=== PATIENT | female | born 2000 ===

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

== ENCOUNTER 2018-07-11 16:23 | Emergency (ER) | payer MEDICAID ==
[2018-07-11 16:23] VITALS: BMI 31.2
[2018-07-11 16:31] VITALS: TEMP 98.4
--- NOTE | 2018-07-11 18:12 | ED PDOC ---
HPI: Chest Pain Time Seen by Provider: 07/11/18 17:31 Chief Complaint (Nursing): Chest Pain Chief Complaint (Provider): Chest Pain History Per: Patient History/Exam Limitations: no limitations Onset/Duration Of Symptoms: Days (x2) Current Symptoms Are (Timing): Still Present Additional Complaint(s): Patient is a 17 year old female with a possible medical history of high cholesterol but is unsure. She arrives to the emergency room complaining of having left arm pain that travels form her neck to down her arm for the past x2 days. Patient states she had a control implant planted in her left arm in October of 2017 and feels the pain is associated to that. She states she is also having constant chest pain and is also experiencing numbness, tingling and neck pain. Patient states she took Advil with no relief in symptoms. Her pain is worse with movement. PMD: Rylee Dave Past Medical History Reviewed: Historical Data, Nursing Documentation, Vital Signs Vital Signs: Last Vital Signs Temp 98.4 F 07/11/18 16:30 Pulse 68 07/11/18 16:30 Resp 16 07/11/18 16:30 BP 115/72 07/11/18 16:30 Pulse Ox 97 07/11/18 16:30 - Surgical History Surgical History: No Surg Hx - Family History Family History: States: Unknown Family Hx - Home Medications Home Medications: Ambulatory Orders Medication Instructions Recorded Metoclopramide [Reglan] 1 tab PO TID PRN #25 tab 01/07/17 Oseltamivir Phosphate [Tamiflu] 75 mg PO BID #10 capsule 03/20/17 Docusate Sodium [Colace] 100 mg PO BID #60 capsule 07/16/17 Ferrous Gluconate 324 mg PO TID #90 tablet 07/16/17 - Allergies Allergies/Adverse Reactions: Allergies Allergy/AdvReac Type Severity Reaction Status Date / Time No Known Allergies Allergy Verified 01/07/17 14:19 Review of Systems ROS Statement: Except As Marked, All Systems Reviewed And Found Negative Cardiovascular: Positive for: Chest Pain Musculoskeletal: Positive for: Neck Pain, Arm Pain Physical Exam - Reviewed Nursing Documentation Reviewed: Yes Vital Signs Reviewed: Yes - Physical Exam Appears: Positive for: Non-toxic, No Acute Distress Head Exam: Positive for: ATRAUMATIC, NORMOCEPHALIC Skin: Positive for: Normal Color, Warm, Dry Eye Exam: Positive for: Normal appearance, EOMI, PERRL ENT: Positive for: Normal ENT Inspection Neck: Positive for: Normal, Painless ROM, Supple Cardiovascular/Chest: Positive for: Regular Rate, Rhythm. Negative for: Murmur Respiratory: Positive for: Normal Breath Sounds. Negative for: Respiratory Distress Gastrointestinal/Abdominal: Positive for: Normal Exam, Soft. Negative for: Tenderness Back: Positive for: Normal Inspection. Negative for: L CVA Tenderness, R CVA Tenderness, Vertebral Tenderness Extremity: Positive for: Normal ROM. Negative for: Pedal Edema, Deformity Neurological/Psych: Positive for: Alert, Oriented - Laboratory Results Result Diagrams: 07/11/18 18:30 - ECG ECG Rhythm: Positive for: Normal QRS, Normal ST Segment, Sinus Rhythm Rate: 69 O2 Sat by Pulse Oximetry: 97 (RA) Pulse Ox Interpretation: Normal Medical Decision Making Medical Decision Making: Time: 175 Impression: Left arm pain and chest pain --Differential diagnosis includes but is not limited to: musculoskeletal pain, cervical irradulopathy. Rule out ACS and less like PE. Plan: --EKG --BMP --Troponin I --CBC with differential --D dimer --Chest xray 2 views --Toradol 15 mg IVP --monitor and storage bin tender Time: 1900 --Patient care endorsed to Dr. Gonzalez pending labs, reassessment and final disposition. ------- Scribe Attestation: Documented by Edd Maynard, acting as a scribe for Reginald Diana MD. Provider Scribe Attestation: All medical record entries made by the Scribe were at my direction and personally dictated by me. I have reviewed the chart and agree that the record accurately reflects my personal performance of the history, physical exam, medical decision making, and the department course for this patient. I have also personally directed, reviewed, and agree with the discharge instructions and disposition. Disposition - Disposition Forms: [employer] (Telugu)
--- NOTE | 2018-07-11 18:24 | RAD ---
Date of service: 07/11/2018 HISTORY: chest pain COMPARISON: No prior. TECHNIQUE: Chest PA and lateral views FINDINGS: LUNGS: No active pulmonary disease. PLEURA: No significant pleural effusion identified. No pneumothorax apparent. CARDIOVASCULAR: No aortic atherosclerotic calcification present. Normal cardiac size. No pulmonary vascular congestion. OSSEOUS STRUCTURES: No significant abnormalities. VISUALIZED UPPER ABDOMEN: Normal. OTHER FINDINGS: None. IMPRESSION: No active disease.
[2018-07-11 18:35] LABS: BASO # 0.1 K/uL (0.0-0.2); EOS # 0.2 K/uL (0.0-0.7); EOS % 1.7 % (0.0-4.0); HEMOGLOBIN 13.2 g/dL (12.0-16.0); LYMPH % 30.4 % (20.0-40.0); MEAN CELL VOLUME 85.7 fl (81.0-99.0); MEAN CORPUSCULAR HEMOGLOBIN 28.8 pg (27.0-31.0); MEAN CORPUSCULAR HGB CONC 33.6 g/dL (33.0-37.0); MEAN PLATELET VOLUME 9.7 fl (7.2-11.7); MONO # 0.6 K/uL (0.0-0.8); MONO % 6.2 % (0.0-10.0); NEUT % 60.7 % (50.0-75.0); NRBC % 0.1 % (0.0-0.0); RBC 4.6 Mil/uL (3.80-5.20); RED CELL DISTRIBUTION WIDTH 14.6 % (11.5-14.5); WHITE BLOOD COUNT 9.8 K/uL (4.8-10.8)
--- NOTE | 2018-07-11 19:24 | ED PDOC ---
- Laboratory Results Result Diagrams: 07/11/18 18:30 07/11/18 19:59 - ECG O2 Sat by Pulse Oximetry: 97 (RA) Pulse Ox Interpretation: Normal Medical Decision Making Medical Decision Making: Time: 1899 --Patient care endorsed to this provider by Dr. Gonzalez pending ER work up, reassessment and final disposition. Chest xray findings: Accession No. : [id number] Patient Name / ID : ZACH LEAVITT / [id number] Exam Date : 07/11/2018 17:49:39 ( Approved ) Study Comment : Sex / Age : F / 17Y Creator : jose frederick Dictator : Tim Michael MD Cattle Inspector : Station Worker : Tim Michael MD Approver2 : Report Date : 07/11/2018 18:05:47 My Comment : Date of service: 07/11/2018 HISTORY: chest pain COMPARISON: No prior. TECHNIQUE: Chest PA and lateral views FINDINGS: LUNGS: No active pulmonary disease. PLEURA: No significant pleural effusion identified. No pneumothorax apparent. CARDIOVASCULAR: No aortic atherosclerotic calcification present. Normal cardiac size. No pulmonary vascular congestion. OSSEOUS STRUCTURES: No significant abnormalities. VISUALIZED UPPER ABDOMEN: Normal. OTHER FINDINGS: None. IMPRESSION: No active disease. Name: ZAK SERRANO Exam Date: Jul 11, 2018 10:34:54 PM EDT Modality Type: CT Description: CTA CHEST FOR PE Gender: F Laterality: Not applicable : 98 Referring Physician: Lilian Gonzalez EXAM: CTA Chest with Intravenous Contrast for Pulmonary Embolism CLINICAL HISTORY: Chest pain elevated d-dimer TECHNIQUE: Axial CTA images of the chest with intravenous contrast using a pulmonary embolism protocol. Reconstructed images were created and reviewed. 308.63 mGy-cm CONTRAST: With; [id number] 80ml was administered without incident. COMPARISON: None provided. FINDINGS: PULMONARY ARTERIES No evidence of central or segmental pulmonary embolism is seen. AORTA There is no evidence for aneurysm or dissection of the thoracic aorta. LUNGS The lungs appear clear. PLEURAL SPACES No pleural effusion seen. No pneumothorax evident. HEART Heart size is within normal limits. No significant pericardial effusion. LYMPH NODES No lymphadenopathy is evident. BONES No focal osseous abnormality or acute fracture. UPPER ABDOMEN Images of the upper abdomen are unremarkable. IMPRESSION: Unremarkable pulmonary embolism protocol CTA of the chest. Electronically signed on Jul 11, 2018 10:55:40 PM EDT by: Dominick Justice M.D., MBA Certified By [facility] Fellowship Trained MRI and CT Specialist DW pt findings and plan of care. Chest pain does not appear to be emergently significant. Scribe Attestation: Documented by Edd Maynard, acting as a scribe Nicole Gonzalez MD. Provider Scribe Attestation: All medical record entries made by the Scribe were at my direction and personally dictated by me. I have reviewed the chart and agree that the record accurately reflects my personal performance of the history, physical exam, medical decision making, and the department course for this patient. I have also personally directed, reviewed, and agree with the discharge instructions and disposition. Disposition Counseled Patient/Family Regarding: Studies Performed, Diagnosis, Need For Followup, Rx Given - Clinical Impression Clinical Impression: Chest pain, Radiculopathy affecting upper extremity - POA Present On Arrival: None - Disposition Referrals: [facility] [Outside] Disposition: Routine/Home Disposition Time: 23:00 Condition: IMPROVED Prescriptions: Famotidine [Pepcid] 40 mg PO DAILY PRN #20 tab PRN Reason: reflux Ibuprofen [Motrin Tab] 600 mg PO Q8 PRN #30 tab PRN Reason: Pain, Moderate (4-7) Instructions: Radiculopathy (DC), Chest Pain That Is Not Caused by the Heart (DC) Forms: [facility] ED School/Work Excuse
[2018-07-11 19:54] VITALS: BP 124/55; PULSE 63; RESP 20
[2018-07-11 20:25] LABS: BLOOD UREA NITROGEN 19 mg/dl (7-17); CALCIUM 8.7 mg/dL (8.4-10.2); GFR NON-AFRICAN AMERICAN > 60
[2018-07-11] MEDS ORDERED: Iodixanol 320 MG/ML 100 ML BOTTLE IV ONE (21:08)
[2018-07-11] MEDS ORDERED: Sodium Chloride 0.9% 50 ML IV ONE (21:08)
[2018-07-12 02:36] VITALS: O2SAT 100
--- NOTE | 2018-07-12 09:13 | CT ---
Date of service: 07/11/2018 PROCEDURE: CT Chest with contrast (Pulmonary Angiogram) HISTORY: chest pain elevated d dimer COMPARISON: None available. TECHNIQUE: Axial computed tomography images were obtained of the chest in the pulmonary arterial phase of enhancement. Coronal and sagittal reformatted images were created and reviewed. Intravenous contrast dose: 80 mL of Visipaque 320 Radiation dose: Total exam DLP = 308.63 mGy-cm. This CT exam was performed using one or more of the following dose reduction techniques: Automated exposure control, adjustment of the mA and/or kV according to patient size, and/or use of iterative reconstruction technique. FINDINGS: PULMONARY ARTERIES: Unremarkable. No pulmonary embolism. AORTA: No acute findings. No thoracic aortic aneurysm. No aortic atherosclerotic calcification or mural plaque present. LUNGS: Unremarkable. No nodule, mass or pulmonary consolidation. PLEURAL SPACES: Unremarkable. No effusion or pneumothorax. HEART: Unremarkable. No cardiomegaly. No significant pericardial effusion. LYMPH NODES: No lymphadenopathy. BONES, CHEST WALL: Unremarkable. No fracture or destructive lesion OTHER FINDINGS: Unremarkable. IMPRESSION: Unremarkable CT pulmonary angiogram. No pulmonary embolus. Concordant results (preliminary interpretation) provided by [facility].
--- NOTE | 2018-07-12 10:05 | CARD ---
APPROVED REPORT Date of service: 07/11/2018 EKG Measurement Heart [id number] <Conclusion> Normal sinus rhythm with sinus arrhythmia Normal ECG
== END 2018-07-11 23:33 | disposition home or self-care (01) ==
LOC: H.ER 16:23
DX: R07.9 Chest pain, unspecified (principal); M54.10 Radiculopathy, site unspecified
CPT/HCPCS: 71046; 71275; 80048; 81025; 84484; 85025; 85378; 93005; 96374; 99284; J1885; Q9967